=== PATIENT | male | born 1980 | race Caucasian/White ===

== ENCOUNTER → 2021-05-10 | Outpatient (CLI) | payer BC ==
--- NOTE | 2021-05-10 14:06 | CT ---
EXAMINATION TYPE: CT abdomen pelvis w con DATE OF EXAM: 05/10/2021 COMPARISON: None INDICATION: Intra-abdominal and pelvic swelling DLP: 782.10 mGycm, Automated exposure control for dose reduction was used. CONTRAST: 100 mL of Isovue 300. Study performed with Oral Contrast TECHNIQUE: Axial images were obtained from above the diaphragm to the pubic rami in the axial plane a t 5 mm thick sections. Reconstructed images are reviewed on the computer in the coronal plane. FINDINGS: Limited CT sections are obtained the lung bases. The lung bases are clear. CT ABDOMEN: Liver: Normal Spleen: Normal Pancreas: Normal Adrenal glands: The adrenal glands are normal. Gallbladder: Normal Kidneys: No masses are evident. No hydronephrosis is present. No cysts are present. Delayed images were obtained through the kidneys, which remain unremarkable. Aorta: Normal Inferior vena cava: Normal. CT PELVIS: Loops of bowel within the abdomen and pelvis are normal. Oral contrast extends to the rectum. Ther e are loops of bowel which are incompletely distended or lack oral contrast limiting their evaluation . Appendix: Normal as visualized. Urinary bladder: Normal. Genitourinary structures: Prostate is normal. Osseous structures: No suspicious lytic or sclerotic lesions. May be a small bone island on the later al right sacrum. Series 3 image 66 Attention states the inguinal regions. There are enlarged lymph nodes within the right inguinal regio n. The largest measures 1.7 x 7 cm. Smaller lymph nodes are present bilaterally. There is some enlarg ed lymphadenopathy within the right inguinal region. The larger senior outside sales representative measure 1.6 cm, series 3 image 69 suspicious obturator canal nodes are not evident. There may be some right common iliac ad enopathy medial to the psoas muscle measuring 1.1 cm. IMPRESSIONS: 1. Enlarged right inguinal adenopathy, right iliac chain adenopathy is present and some enlarged rig ht common iliac adenopathy. Additional workup is recommended.
== END | disposition home or self-care (01) ==
LOC: RADCTMAIN 09:47
PROVIDERS: ATTEND Family Medicine
DX: R59.0 Localized enlarged lymph nodes (principal)
CPT/HCPCS: 74177; Q9967 ×2

== ENCOUNTER → 2021-09-08 | Outpatient (CLI) | payer BC ==
--- NOTE | 2021-09-10 20:50 | PE ---
EXAMINATION TYPE: PET CT fusion skull to thigh DATE OF EXAM: 09/08/2021 COMPARISON: CT abdomen and pelvis May 10, 2021 HISTORY: Hodgkin lymphoma excised right groin May 24, 2021. Completed chemotherapy July 24 TECHNIQUE: Following the intravenous administration of 9.6 mCi of F-18 FDG, whole body images are pe rformed from the skull base to the midthigh. Images are reviewed on the computer in the coronal, axi al, and sagittal planes. Reconstructed rotating images are created on independent workstation and re viewed on the computer. A localization and attenuation correction CT is performed in conjunction wi th the PET scan. Blood glucose level equals 98. SCAN: Subsequent Scan FINDINGS: SKULL BASE AND NECK: No areas of abnormal hypermetabolic uptake. CHEST, MEDIASTINUM, AND HILAR REGION: No areas of abnormal hypermetabolic uptake. ABDOMEN AND PELVIS: Normal excretion is present. Surgical changes right groin region axial image 252 with scarring. No areas of abnormal hypermetabolic uptake. Abnormal enlarged right external iliac eulalia in lymph nodes remain present. They are decreased in size. Right external iliac chain lymph node malia ures 2.4 x 1.8 cm axial image 243 diminished in size from 3.7 x 2.8 cm prior study image 76 however i t is ametabolic. OSSEOUS STRUCTURES: No areas of abnormal hypermetabolic uptake. OTHER CT: There is right subclavian Mediport catheter terminating in SVC. Nodular subareolar gynecoma stia is present. Liver is diffusely low dense consistent with diffuse fatty infiltration. Occasional colonic diverticu la is present. Small fat-containing left inguinal hernia. IMPRESSION: Improved but persistent enlarged right pelvic or iliac chain lymph nodes. No hypermetabol ic adenopathy currently.
== END | disposition home or self-care (01) ==
LOC: RADPETMAIN 12:41
PROVIDERS: ATTEND Internal Medicine Hematology & Oncology
DX: C81.95 Hodgkin lymphoma, unspecified, lymph nodes of inguinal region and lower limb (principal)
CPT/HCPCS: 78815; A9552

== ENCOUNTER → 2021-12-08 | Outpatient (CLI) | payer BC ==
--- NOTE | 2021-12-08 18:50 | CT ---
EXAMINATION TYPE: CT ChestAbdPelvis w con DATE OF EXAM: 12/08/2021 COMPARISON: PET scan 09/08/2021, CT scan 05/10/2021 HISTORY: obs for mets. hodgkins lymphoma CT DLP: 1887 mGycm Automated exposure control for dose reduction was used. CONTRAST: CT scan of the chest, abdomen and pelvis is performed with Oral Contrast and with IV Contrast, patien t injected with 100 mL of Isovue 300. FINDINGS: LUNGS: The lungs are grossly clear, there is no concerning parenchymal mass or nodule identified. T here is no pleural effusion or pneumothorax seen. The tracheobronchial tree is patent. MEDIASTINUM: There are no greater than 1 cm hilar or mediastinal lymph nodes. No pericardial effusi on is seen. OTHER: Mediport catheter noted. LIVER/GB: There are prominent size with reduced attenuation correlate for hepatic steatosis. No galls tones or hepatic masses. PANCREAS: No significant abnormality is seen. SPLEEN: No significant abnormality is seen. ADRENALS: No significant abnormality is seen. KIDNEYS: No significant abnormality is seen. BOWEL: Diverticulosis with no CT evidence of diverticulitis.. Mild bowel wall prominence of the left colon most likely related to incomplete distention is similar relative to prior exam. LYMPH NODES: At previously noted right external iliac chain lymph node measuring 2.4 x 1.8 cm now richi sures 1.4 x 0.8 cm.. Shotty adenopathy noted bilaterally which is stable relative to previous exam OSSEOUS STRUCTURES: No significant abnormality is seen. OTHER: Previous surgery involving the right inguinal region noted. IMPRESSION: 1. Interval reduction in size of the right pelvic\iliac chain adenopathy now measuring 1.4 x 0.8 cm a nd previously measuring 2.4 x 1.8 cm. 2. Correlate for hepatomegaly and hepatic steatosis. 3. Mild wall prominence of the left colon which is similar to prior exam. No inflammatory changes. Ma y be related to incomplete distention correlate clinically.
== END | disposition home or self-care (01) ==
LOC: RADCTMAIN 15:14
PROVIDERS: ATTEND Internal Medicine Hematology & Oncology
DX: C81.90 Hodgkin lymphoma, unspecified, unspecified site (principal)
CPT/HCPCS: 71260; 74177; Q9967

== ENCOUNTER → 2022-03-15 | Outpatient (CLI) | payer BC ==
--- NOTE | 2022-03-16 09:30 | CT ---
EXAMINATION TYPE: CT ChestAbdPelvis w con DATE OF EXAM: 03/15/2022 COMPARISON: 12/08/2021 HISTORY: Lymphoma CONTRAST: CT scan of the chest, abdomen and pelvis is performed with Oral Contrast and with IV Contrast, patien t injected with 100 mL of Isovue 300. CT Chest: LUNGS: The lungs are clear and free of infiltrate or atelectasis. No pulmonary nodule or mass is det ected. No pleural effusion or CT evidence of interstitial lung disease. MEDIASTINUM: Thoracic aorta is of normal caliber. The heart is not enlarged. No evidence for media stinal mass or adenopathy. HILAR STRUCTURES: No evidence for mass. No hilar adenopathy is appreciated. OTHER: No significant abnormality. CONTRAST CT ABDOMEN AND PELVIS FINDINGS: LIVER/GB: No calcified gallstones. There is mild hepatic steatosis. No space occupying hepatic lesi on. Biliary tree is of normal caliber. PANCREAS: No inflammation. No distinct mass. SPLEEN: The spleen continues to be mildly enlarged at 14.4 cm craniocaudal dimension. No lesion seen. ADRENALS: No nodule. No thickening. KIDNEYS/BLADDER: No hydronephrosis. No nephrolithiasis. No disctinct renal mass. BOWEL: Normal appendix. Normal bowel caliber. No inflammation. GENITAL ORGANS: No gross abnormality. LYMPH NODES: No greater than 1cm abdominal or pelvic lymph nodes are appreciated. AORTA: No significant abnormality. OSSEOUS STRUCTURES: No significant abnormality is seen. OTHER: No significant additional abnormality is seen. IMPRESSION: 1. Resolution of right iliac chain adenopathy. No adenopathy seen greater than 1 cm at this time. 2. Hepatosplenomegaly is mild hepatic steatosis.
== END | disposition home or self-care (01) ==
LOC: RADCTMAIN 09:02
PROVIDERS: ATTEND Internal Medicine Hematology & Oncology
DX: C81.95 Hodgkin lymphoma, unspecified, lymph nodes of inguinal region and lower limb (principal); K76.0 Fatty (change of) liver, not elsewhere classified; R16.2 Hepatomegaly with splenomegaly, not elsewhere classified
CPT/HCPCS: 82565; 84520; 71260; 74177; Q9967

== ENCOUNTER → 2022-06-18 | Outpatient (CLI) | payer BC ==
--- NOTE | 2022-06-18 14:59 | CT ---
EXAMINATION TYPE: CT ChestAbdPelvis w con DATE OF EXAM: 06/18/2022 COMPARISON: 03/15/2022 HISTORY: obs for mets. hx of non hodgkin lymphoma CT DLP: 1974 mGycm CONTRAST: CT scan of the chest, abdomen and pelvis is performed with Oral Contrast and with IV Contrast, patien t injected with 70 mL of Isovue 300. CT Chest: LUNGS: The lungs are clear and free of infiltrate or atelectasis. No pulmonary nodule or mass is det ected. No pleural effusion or CT evidence of interstitial lung disease. MEDIASTINUM: Thoracic aorta is of normal caliber. The heart is not enlarged. No evidence for media stinal mass or adenopathy. HILAR STRUCTURES: No evidence for mass. No hilar adenopathy is appreciated. OTHER: No significant abnormality. CONTRAST CT ABDOMEN AND PELVIS FINDINGS: LIVER/GB: Hepatomegaly with underlying hepatic steatosis. No calcified gallstones. No space occupyi ng hepatic lesion. Biliary tree is of normal caliber. PANCREAS: No inflammation. No distinct mass. SPLEEN: No splenic enlargement. No lesion seen. ADRENALS: No nodule. No thickening. KIDNEYS/BLADDER: No hydronephrosis. No nephrolithiasis. No disctinct renal mass. BOWEL: Normal appendix. Normal bowel caliber. No inflammation. GENITAL ORGANS: No gross abnormality. LYMPH NODES: No greater than 1cm abdominal or pelvic lymph nodes are appreciated. AORTA: No significant abnormality. OSSEOUS STRUCTURES: No significant abnormality is seen. OTHER: No significant additional abnormality is seen. IMPRESSION: 1. No evidence for adenopathy throughout the chest abdomen or pelvis. 2. Hepatomegaly with underlying hepatic steatosis.
== END | disposition home or self-care (01) ==
LOC: RADCTMAIN 12:34
PROVIDERS: ATTEND Internal Medicine Hematology & Oncology
DX: C81.95 Hodgkin lymphoma, unspecified, lymph nodes of inguinal region and lower limb (principal); Z03.89 Encounter for observation for other suspected diseases and conditions ruled out; K76.0 Fatty (change of) liver, not elsewhere classified; R16.0 Hepatomegaly, not elsewhere classified
CPT/HCPCS: 71260; 74177; Q9967

== ENCOUNTER → 2022-10-15 | Outpatient (CLI) | payer BC ==
--- NOTE | 2022-10-16 10:19 | CT ---
EXAMINATION TYPE: CT ChestAbdPelvis w con DATE OF EXAM: 10/15/2022 INDICATION: Hodgkin's Lymphoma COMPARISON: 06/18/2022 CT DLP: 1429.9 mGycm CONTRAST: Performed with Oral Contrast and with IV Contrast, patient injected with 70 cc mL of Isovue 300. TECHNIQUE: Axial images at 5 mm thick sections. Reconstructed images in the coronal plane. Delayed images through the kidneys. FINDINGS: CT CHEST: Portion of the thyroid visualized is normal. No suspicious lung nodules or focal infiltrates are present. No enlarged mediastinal or hilar adenopathy is evident. The ascending aorta diameter at the level of the main pulmonary artery is 2.9 cm. The main pulmonary artery diameter at the bifurcation is 2.[address] ABDOMEN: Liver: There is moderate fatty infiltration of the liver. Spleen: Normal Pancreas: Normal Adrenal glands: The adrenal glands are normal. Gallbladder: Normal Kidneys: No masses are evident. No hydronephrosis is present. No cysts are present. Delayed images were obtained through the kidneys, which remain unremarkable. Aorta: Normal Inferior vena cava: Normal. CT PELVIS: Loops of bowel within the abdomen and pelvis are normal. There are loops of bowel which are incom pletely distended or lack oral contrast limiting their evaluation. Oral contrast extends to the rectu m. Appendix: Normal as visualized. Urinary bladder: Normal. Genitourinary structures: Prostate is normal. Osseous structures: No suspicious lytic or sclerotic lesions. Lymphadenopathy: No suspicious axillary adenopathy is evident. No enlarged mediastinal or hilar lymph nodes are evident. No retrocrural adenopathy is evident. No periaortic adenopathy is evident. There is an enlarged retrocaval node in the upper portion measuring 1.3 cm. This has enlarged from comparis on. No obturator canal or iliac chain adenopathy is evident. There is an enlarged 1.2 cm left inguina l lymph node. Scattered additional small inguinal lymphadenopathy is present. IMPRESSIONS: 1. Enlarged left inguinal lymph node and retrocaval lymph node near the diaphragm. Consider reevaluat ion with PET/CT.
== END | disposition home or self-care (01) ==
LOC: RADCTMAIN 14:25
PROVIDERS: ATTEND Internal Medicine Hematology & Oncology
DX: C81.95 Hodgkin lymphoma, unspecified, lymph nodes of inguinal region and lower limb (principal); K21.9 Gastro-esophageal reflux disease without esophagitis; M62.838 Other muscle spasm; R59.0 Localized enlarged lymph nodes; Z71.3 Dietary counseling and surveillance
CPT/HCPCS: 71260; 74177; Q9967

== ENCOUNTER → 2023-01-14 | Outpatient (CLI) | payer BC ==
--- NOTE | 2023-01-16 09:54 | CT ---
EXAMINATION TYPE: CT ChestAbdPelvis w con DATE OF EXAM: 01/14/2023 INDICATION: Hodgkins lymphoma inguinal and lower limb COMPARISON: 10/15/2022 CT DLP: 1567.6 mGycm CONTRAST: Performed with Oral Contrast and with IV Contrast, patient injected with 100ml mL of Isovue 300. TECHNIQUE: Axial images at 5 mm thick sections. Reconstructed images in the coronal plane. Delayed images through the kidneys. FINDINGS: CT CHEST: Portion of the thyroid visualized is normal. No suspicious lung nodules or focal infiltrates are present. No enlarged mediastinal or hilar adenopathy is evident. The ascending aorta diameter at the level of the main pulmonary artery is 3.1 cm. The main pulmonary artery diameter at the bifurcation is 2.[address] ABDOMEN: Liver: Moderate diffuse fatty infiltration within the liver. No discrete masses are evident. Spleen: Normal Pancreas: Normal Adrenal glands: The adrenal glands are normal. Gallbladder: Normal Kidneys: No masses are evident. No hydronephrosis is present. No cysts are present. Delayed images were obtained through the kidneys, which remain unremarkable. Aorta: Normal Inferior vena cava: Normal. CT PELVIS: Loops of bowel within the abdomen and pelvis are normal. There are loops of bowel which are incom pletely distended or lack oral contrast limiting their evaluation. Appendix: Normal as visualized. Urinary bladder: Normal. Genitourinary structures: Prostate appears normal Osseous structures: No suspicious lytic or sclerotic lesions. Lymphadenopathy: Small inguinal lymphadenopathy is present. Enlarged lymphadenopathy is not evident. Iliac chain and obturator canals appear normal. No periaortic adenopathy. There is a 1.5 cm retrocava l lymph node below the renal arteries. Series 201 image 78. This previously measured 1.3 cm. The prev iously enlarged 1.2 cm left inguinal lymph node has diminished to 1.1 cm. IMPRESSIONS: 1. Slightly more prominent retrocaval lymph node currently measuring 1.5 cm, previous measurement 1.3 .
== END | disposition home or self-care (01) ==
LOC: RADCTMAIN 14:27
PROVIDERS: ATTEND Internal Medicine Hematology & Oncology
DX: C81.95 Hodgkin lymphoma, unspecified, lymph nodes of inguinal region and lower limb (principal); K21.9 Gastro-esophageal reflux disease without esophagitis; M62.838 Other muscle spasm; Z71.3 Dietary counseling and surveillance
CPT/HCPCS: 71260; 74177; Q9967

== ENCOUNTER → 2024-02-07 | Day surgery (SDC) | payer BC ==
[2024-02-05 15:58] VITALS: BMI 28.5
[~2024-02-07] MED LIST: LIDOCAINE 1% (10MG/ML) FOR IV START INTRADERMA PRN; LIDOCAINE 1% INJ 10MG/ML (20 ML MDV) ONE; MIDAZOLAM 2 MG/2 ML VIAL ONE; PROPOFOL 10 MG/ML 20 ML VIAL IV ONE
[2024-02-07 14:41] VITALS: RESP 16; TEMP 97
[2024-02-07] MEDS: IV FLUID CONTINUATION 1,000 ML IV ONE (14:41)
[2024-02-07] MEDS: LACTATED RINGERS 1,000 ML IV SCH (14:51)
--- NOTE | 2024-02-07 16:17 | P.PCN ---
Date of Procedure: 02/07/24 Procedure(s) Performed: BRIEF HISTORY: Patient is a 43-year-old, pleasant, white male scheduled for an upper endoscopy for evaluation of intermittent episodes of epigastric pain in the last 1 month duration. He had severe episodes lasting for almost 1 day in the epigastric area that spontaneously resolved. He did have a CT of the abdomen pelvis done and according to the patient it was unremarkable. He does have history of Hodgkin's lymphoma diagnosed in 2020 and is s/p chemoradiation and in clinical remission.. PROCEDURE PERFORMED: Esophagogastroduodenoscopy biopsy. PREOPERATIVE DIAGNOSIS: Intermittent episodes of epigastric pain. IV sedation per anesthesia. PROCEDURE: After informed consent was obtained, the patient was brought into the endoscopy unit. IV sedation was administered by Anesthesia under continuous monitoring. Initially the Olympus GIF-140 video endoscope was inserted into the mouth. Esophagus intubated without any difficulty. It was gradually advanced into the stomach and duodenum and carefully examined. The bulb and the second part of the duodenum appeared normal. The scope at this time was withdrawn to the stomach, adequately insufflated with air, and upon careful examination, mucosa of the antrum had patchy areas of erythema consistent with gastritis and biopsies were done from this area, body, cardia and the fundus appeared normal. The scope was then withdrawn into the esophagus. Small hiatal hernia noted. The GE junction was located at 39 cm from the incisors. It appears slightly irregular. Biopsies were done from this area. The rest of the esophagus appeared normal. There were no erosions or ulcerations seen and the patient tolerated the procedure well. IMPRESSION: 1. Mild antral gastritis. 2. Small hiatal hernia with irregular GE junction status post biopsies. RECOMMENDATIONS: The findings of this examination were discussed with the patient as well as his family. He was advised to follow-up with the biopsy results.. With omeprazole 20 mg daily and follow antireflux measures. Schedule him for an ultrasound the gallbladder to rule out gallstones and follow-up in the office in 2 to 3 weeks.
[2024-02-07 16:34] VITALS: BP 145/98; PULSE 80
== END ==
LOC: ORWHC2ENDO 12:38
PROVIDERS: ATTEND Internal Medicine Gastroenterology
DX: R10.13 Epigastric pain
CPT/HCPCS: 43239; 88305

== ENCOUNTER → 2024-04-08 | Outpatient (CLI) | payer BC ==
--- NOTE | 2024-04-08 09:33 | US ---
EXAMINATION TYPE: US gallbladder DATE OF EXAM: 04/08/2024 COMPARISON: CT: 01/14/23 CLINICAL INDICATION: Male, 44 years old with history of R10.13 EPIGASTRIC PAIN; epigasgtric pain TECHNIQUE: Grayscale and color Doppler imaging of the right upper quadrant was performed. FINDINGS: EXAM MEASUREMENTS: Liver Length: 15.8 cm Gallbladder Wall: 0.2 cm CBD: 0.4 cm Right Kidney: 10.3 x 4.6 x 5.8 cm PORTFOLIO SPECIALIST NOTES: Pancreas: parts seen appear wnl Liver: heterogeneous and increased attenuation Gallbladder: wnl Evidence for sonographic Downing's sign: No CBD: wnl Right Kidney: wnl IMPRESSION: 1. No evidence for acute process. 2. Hepatic steatosis. [facility]f, , 04/08/2024 9:30 AM
== END | disposition home or self-care (01) ==
LOC: RADUSWWP 07:01
PROVIDERS: ATTEND Internal Medicine Gastroenterology
DX: K76.0 Fatty (change of) liver, not elsewhere classified (principal)
CPT/HCPCS: 76705